=== PATIENT | male | born 1940 ===

== ENCOUNTER 2017-06-21 01:29 | Inpatient (IN) | payer MEDICARE, BC ==
[2017-06-21] VITALS (15 sets, daily range): BP systolic 81–132; BP diastolic 47–83
[~2017-06-21] VITALS: Ht 188 cm; Wt 119.1 kg
[~2017-06-21 01:29] MED LIST: ASPI-757 PO; CALC1TAB32 PO; FURO20TA19 PO; GLUC-198 PO; INSU100I10 SQ; INSU100V24 SQ; LOSA-57 PO; MULT-1335 PO; SIMV-54 PO; UBID1CAP2 PO; VITA-175 PO; VITA200C44 PO
[2017-06-21] MEDS ORDERED: FAMOTIDINE 20 MG TAB PO ONE (06:00)
[2017-06-21] MEDS ORDERED: CEFAZOLIN IVPB ONE (06:00)
[2017-06-21] MEDS ORDERED: LIDOCAINE/SOD BICARB 8.4% SYR ID ONE (06:00)
[2017-06-21] MEDS ORDERED: NORMOSOL R SOLN(*) 1000 ML BAG 1,000 ML IV PRN (06:00)
[2017-06-21] MEDS ORDERED: NS 0.9% IVPB ONE (06:00)
[2017-06-21] MEDS ORDERED: MIDAZOLAM 2 MG/2 ML VIAL IVP PRN (06:00)
[2017-06-21] MEDS ORDERED: PROPOFOL EMUL(*) 10MG/ML 20 ML 20 ML ONE ×2 (09:13→13:24)
[2017-06-21] MEDS ORDERED: ROCURONIUM BROM 10 MG/ML 10 ML ONE (09:13)
[2017-06-21] MEDS ORDERED: SUGAMMADEX SOD 200 MG/2 ML SDV ONE (09:13)
[2017-06-21] MEDS ORDERED: DEXAMETHASONE SOD 4 MG/ML VIAL ONE (09:13)
[2017-06-21] MEDS ORDERED: ONDANSETRON 4 MG/2 ML VIAL ONE (09:13)
[2017-06-21] MEDS ORDERED: fentaNYL CITR 250 MCG/5 ML AMP ONE (09:13)
[2017-06-21] MEDS ORDERED: LIDOCAINE MPF 1% 5 ML VIAL ONE (09:13)
[2017-06-21] MEDS ORDERED: KETAMINE HCL 200 MG/20 ML MDV ONE (09:15)
[2017-06-21] MEDS ORDERED: PROPOFOL(*)1000 MG/100 ML VIAL 100 ML ONE ×2 (11:23→13:27)
[2017-06-21] MEDS ORDERED: HYDROmorphone HCL 2 MG/ML SDV ONE (12:03)
[2017-06-21] MEDS ORDERED: PROPOFOL EMUL(*) 10MG/ML 20 ML 40 ML ONE ×2 (12:20→13:05)
[2017-06-21] MEDS ORDERED: LABETALOL HCL 100 MG/20ML VIAL ONE (13:05)
[2017-06-21] MEDS ORDERED: ROPIVACAINE 0.2% 20 ML VIAL ONE (14:03)
[2017-06-21] MEDS ORDERED: INSULIN HUM REG 100 UN/ML 3 ML VIAL SC ONE (14:45)
[2017-06-21] MEDS ORDERED: DIAZEPAM 5 MG TAB PO PRN (15:20)
[2017-06-21] MEDS ORDERED: FLUSH 10 ML SYR IVP PRN (15:20)
[2017-06-21] MEDS ORDERED: APAP/HYDROCODONE 325/5 TAB PO PRN (15:20)
[2017-06-21] MEDS ORDERED: ACETAMINOPHEN 500 MG TAB PO PRN (15:20)
[2017-06-21] MEDS ORDERED: MAGNESIUM HYDROXIDE* 30ML UDCP PO PRN (15:20)
[2017-06-21] MEDS ORDERED: ACETAMINOPHEN(*)1000 MG/100 ML 100 ML IVPB PRN (15:20)
[2017-06-21] MEDS ORDERED: ONDANSETRON 4 MG/2 ML VIAL IVP PRN (15:20)
[2017-06-21] MEDS ORDERED: LR(*) 1000 ML BAG 1,000 ML IV PRN (15:20)
[2017-06-21] MEDS ORDERED: diphenhydrAMINE 25 MG CAP PO PRN (15:20)
[2017-06-21] MEDS ORDERED: BENZOCAINE/MENTHOL 1 EACH LOZG PO PRN (15:20)
[2017-06-21] MEDS ORDERED: HYDROmorphone HCL 2 MG/ML SDV IVP PRN (15:20)
[2017-06-21] MEDS ORDERED: BISACODYL 10 MG SUPP PR PRN (15:20)
[2017-06-21] MEDS ORDERED: oxyCODONE HCL 5 MG CAP PO PRN (15:20)
--- NOTE | 2017-06-21 16:14 | RADIOLOGY IMAGING REPORT ---
[place] [facility] [place] Danial Velazquez : 1940 MR: [id number] V: [id number] EXAM DATE: ORDERING PHYSICIAN: CARMELITA MAYO TECHNOLOGIST: Location: [facility] [place] Patient: Danial Velazquez : 1940 Visit/Account:[id number] Date of Sevice: 06/21/2017 Exam type: LUMBAR SPINE 1 VIEW History: L2-5 LAMINECTOMY REVISION Comparison: May 12, 2017. Findings: To cross table lateral prone intraoperative lateral views of the lumbar spine were submitted. On katherine ge one a metallic probe projects over the posterior spinous process of L3. On image 2A metallic prob e projects over the spinal canal posterior to L4. Retractors are noted in the dorsal soft tissues on these intraoperative images IMPRESSION: 1. As above Report Dictated By: Treva Corrales MD at 06/21/2017 4:07 PM Report E-Signed By: Treva Corrales MD at 06/21/2017 4:10 PM WSN:[email or web address]
[2017-06-21] MEDS: ceFAZolin(*) 1 GM VIAL 3 GM in NS(*) 0.9% 100 ML BAG 100 ML IVPB SCH (18:43)
--- NOTE | 2017-06-21 18:49 | OPERATIVE REPORT 1 ---
EVENT DATE: June 21, 2017 SURGEON: Balbir Aguilar MD ANESTHESIOLOGIST: Abdoul Walden MD ANESTHESIA: General endotracheal anesthesia. GEARCASE ASSEMBLER: HILDA Henao PREOPERATIVE DIAGNOSIS L3-L4 and L4-L5 spinal stenosis. POSTOPERATIVE DIAGNOSIS L3-L4 and L4-L5 spinal stenosis. PROCEDURE PERFORMED L2 to L5 revision laminectomy. INTRAVENOUS FLUIDS 2100 mL ESTIMATED BLOOD LOSS 150 mL IMPLANTS USED None. SPECIMENS None. DRAINS Flat Randy-Gandara drain 10 mm through the back. COMPLICATIONS None. DISPOSITION Post-anesthesia care unit. INDICATIONS FOR SURGERY Mr. Velazquez is a 76-year-old male who presented to my clinic with the chief complaint of imbalance, weakness, and heaviness in bilateral lower extremities, left greater than right. He had had a spinal surgery of uncertain specificity back in the 1980s. He had tried physical therapy, injections, medications, etc. , with no real improvement in his symptoms. We performed an extensive workup secondary to concerns that his symptoms may be coming from cord compression, but spinal cord compression was found. Ultimately, his lumbar spine MRI revealed severe spinal stenosis at L3-L4 and L4-L5 with less significant stenosis up at L2-L3. His physical examination was normal, but given his subjective complaints and the severe stenosis seen on the x-ray and the MRI, he was offered and elected to undergo L2 to L5 laminectomy. Prior to surgery, I explained in detail to the patient the possible risks of surgery. These risks include bleeding, infection, damage to surrounding structures, nerve root injury, persistent and/or worsening pain, spinal fluid leak, meningitis, , blindness, sexual dysfunction, autonomic nervous system dysfunction, and other unforeseen medical and surgical complications. Given the revision nature of the procedure, the patient understands that all pertinent risks are higher secondary to the presence of scar tissue and hypertrophic bone. An understanding that spinal surgery is more predictive at improving extremity discomfort than axial spine pain was stressed. DESCRIPTION OF PROCEDURE On the date of surgery, the patient was met in the preoperative hold area, and all questions were answered. The operative site was identified and marked by myself. Patient was brought in good condition to the operating room, and after succumbing to anesthesia, was placed in the prone position on a Randy table. All bony protuberances and soft tissues were well padded in the standard fashion. Care was taken to maintain appropriate perfusion pressures during anesthesia. Preoperative antibiotics were administered according to the appropriate timing schedule. At the conclusion of the procedure, sponge and needle counts were correct times two. Final timeout was undertaken by members of the operating team to confirm correct patient, correct levels, and correct surgery. Patient was prepped and draped in the standard sterile orthopedic fashion. An incision was made over the intended spinal levels. Sharp dissection was carried down to the posterior elements, and a massive amount of hypertrophic bone was found spanning from the inferior aspect of the L2 spinous process all the way down to the L5 spinous process. A lateral radiograph was taken to confirm correct spinal levels, and soft tissues were then elevated off the posterior elements and the hypertrophic bone in a subperiosteal fashion. A combination of rongeurs and a high-speed germán was used to remove all of the hypertrophic bone and bring us down to the midline of the laminae. The canal was entered with a curved curette by undermining the superior insertion of the ligamentum flavum off the inferior surface of the L2 lamina. A midline decompression was then performed using a combination of the high-speed germán and Kerrison 3 and Kerrison 4 punches. A Chambers elevator was used to separate dural adhesions from surrounding bone and soft tissue prior to use of the Kerrison punch. Once the midline decompression was completed, a second radiograph was obtained, again to confirm correct spinal levels. Bilateral lateral recess decompressions were performed using a combination of the high-speed drill and #3 and #4 Kerrison rongeurs. At the conclusion of the decompression, all foramina were open, and the lateral recesses were well decompressed bilaterally. Meticulous hemostasis was obtained , and the wound was then closed in layers over a drain using interrupted sutures for the deep fascia, inverted interrupted sutures for the subcutaneous tissue, and then a running subcuticular skin stitch. Sponge and needle counts were correct times two. POSTOPERATIVE CARE PLAN Mr. Velazquez will remain in the hospital until his drain output decreases below 40 mL per shift. He will then be discharged home with plan for followup in two weeks' time for wound check and examination. ROSALINA
[2017-06-21] MEDS: DOCUSATE SODIUM 100 MG CAP PO SCH (20:22)
[2017-06-21] MEDS: ASPIRIN 325 MG TAB PO SCH (20:22)
[2017-06-21] MEDS: INSULIN GLARGINE 100 U/ML 3 ML PEN SQ SCH (20:30)
[2017-06-21] MEDS: INSULIN HUMAN LISPRO SLIDING SCALE SUBQ PRN (21:08)
--- NOTE | 2017-06-21 23:04 | Hospitalist Consultation ---
History of Present Illness Requesting Physician Balbir Aguilar MD Reason for Consult Medical management Chief Complaint Postop Hypotension History of Present Illness Mr. Velazquez is a 76 y.o. male with PMH of HTN, DM-II, Dyslipidemia, Prostate Cancer and Spinal Stenosis who underwent surgical procedure for his spinal stenosis by Dr. Aguilar. He tolerated the procedure well except he was mildly hypotensive and his BS was high in 300's postoperatively. History Home Meds Reported Medications Aspirin (ASPIRIN) 325 Mg Tablet, 0.5 TAB PO QHS, TAB 06/16/17 Calcium Carb & Cit/Vitamin D3 (CALCIUM + D3 ER TABLET) 1 Each Tablet.er, 1 EACH PO QDAY 06/16/17 Vitamin B Complex (B COMPLEX) 1 Each Tablet, 1 EACH PO QDAY 06/16/17 Vitamin E Acetate (VITAMIN E) 200 Unit Capsule, 3 TAB PO QDAY, CAPSULE 06/16/17 Glucosa Linton 2KCL/Chondroitin Linton (GLUCOSAMINE & CHONDROITIN CAP) 1 Each Capsule, 1200 MG PO QDAY, CAPSULE 06/16/17 Ubidecarenone/Vitamin E Mixed (Jve69-Ejf E 100 mg-10 Unit Sfg) 100 Mg-10 Unit Capsule, 2 TAB PO QDAY 06/16/17 Multivitamin With Minerals (MULTIPLE VITAMIN) 1 Each Tablet, 1 EACH PO QDAY, TAB 06/16/17 Furosemide (LASIX) 20 Mg Tablet, 1 TAB PO QDAY, TAB 06/16/17 Losartan/Hydrochlorothiazide (LOSARTAN-HCTZ 100-12.5 MG TAB) 1 Each Tablet, 1 EACH PO QDAY 06/16/17 Simvastatin (SIMVASTATIN) 40 Mg Tablet, 40 MG PO QHS, TAB 06/16/17 Insulin Glargine,Hum.rec.anlog (Basaglar Kwikpen U-100) 100 Unit/Ml (3 Ml) Insuln.pen, 45 SQ QHS 06/16/17 Insulin Lispro 100 Un/Ml Vial (HUMALOG 100 U/ML VIAL) 100 Unit/1 Ml Vial, 27-30 UNIT SQ TID, VIAL 06/16/17 Allergies: Coded Allergies: codeine (Verified Allergy, Mild, NAUSEA , 06/16/17) Patient History: Cervical cancer BROTHER OR SISTER FH: prostate cancer FATHER BROTHER OR SISTER BROTHER OR SISTER FH: stroke FATHER Sepsis MOTHER Hx Smoking: No Smoking Status: Never Smoker Caffeine Intake: Tea Caffeine/Cups Per Day: 8- CUPS OF GREEN TEA/DAY Hx Alcohol Use: Yes Alcohol Used: Beer Hx Substance Use Disorder: No Social Drug Use: Never Review of Systems Constitutional: No Fever, No Weight Loss, No Weight Gain, No Chills Neurological: No Confusion, No Weakness, No Dizziness Cardiovascular: No Chest Pain, No Palpitations Respiratory: No Shortness of Breath, No Cough, No Wheezing Gastrointestinal: No Nausea, No Vomiting, No Diarrhea, No Dysphagia, No Constipation, No Abdominal Pain Genitourinary: No Dysuria, No Hematuria Musculoskeletal: Pain, Impaired Mobility, No Sprain, No Strain Psychiatric: No Depression, No Anxiety Exam Vital Signs Vital Signs Date Time Temp Pulse Resp B/P (MAP) Pulse Ox O2 Delivery O2 Flow Rate FiO2 06/21/17 21:10 99.6 77 16 101/47 (65) 91 Nasal Cannula 1.5 General Appearance: Alert, Awake, No Acute Distress, Afebrile Neuro: No Gross deficits Eyes: PERRLA ENT: Normal Cardiovascular: Normal Rhythm & Peripheral Pulses Respiratory: No Respiratory Distress GI: Abd Soft and Non-Tender Extremities: Soft and Non Tender Integumentary: Skin Intact without Lesion / Mass Psych: Alert & Oriented X3, Appropriate Mood & Affect Medical Decision Making Pre-Admit Course Medical Record Review: Yes Assessment and Plan Problems: (1) DM (diabetes mellitus) Status: Chronic Assessment & Plan: Uncontrolled DM with GlycoHb A1C 8. His postop BS was >300 400. I will start him on Sliding scale level 2 and cover with Lispro I will continue his Lantus 45Units at HS 1800 Donovan ADA diet Accuchecks q AC and HS U/A and Lipid Profile in am (2) HTN (hypertension) Status: Chronic Assessment & Plan: His BP has been low after the surgery. I will hold his Losartan/HCTZ I will use Lasix as needed starting am. (3) Spinal stenosis of lumbar region Status: Acute Assessment & Plan: s/p Spinal surgery by Dr. Aguilar Management as per Dr. Aguilar. ASA 325mg po qd for DVTP Condition stable Time Spent on Plan of Care: > 30 min Copies to: BALBIR AGUILAR MD Venous Thromboembolism VTE Risk Physician Assess for VTE Risk: Yes Patient's VTE Risk: Low VTE Diagnostic Test 2 Days Prior to Admit: No Antithrombotics Is Pt On Any Antithrombotics?: No Exam Sepsis Risk: No Definite Risk Problem Qualifiers (1) DM (diabetes mellitus): Diabetes mellitus type: type 2 (2) HTN (hypertension): Hypertension type: essential hypertension Qualified Codes: I10 - Essential ( primary) hypertension ANDREW PEAZ MD June 21, 2017 23:04
[2017-06-21] MEDS ORDERED: TRANEXAMIC AC 1000 MG/10ML SDV 1,000 MG in NS(*) 0.9% 50 ML BAG 50 ML IVPB ONE (23:25)
[2017-06-22] VITALS (7 sets, daily range): BP systolic 91–214; BP diastolic 54–84
[2017-06-22] MEDS: ceFAZolin(*) 1 GM VIAL 3 GM in NS(*) 0.9% 100 ML BAG 100 ML IVPB SCH ×2 (03:36→10:57)
[2017-06-22] MEDS: LOSARTAN POTASSIUM 50 MG TAB PO SCH (08:35)
[2017-06-22] MEDS: CALCIUM CARBONATE/VITAMIN D3 PO SCH (08:35)
[2017-06-22] MEDS: FOLIC ACID/CYANOCOB/PYRIDOXINE PO SCH (08:35)
[2017-06-22] MEDS: DOCUSATE SODIUM 100 MG CAP PO SCH ×2 (08:36→21:21)
[2017-06-22] MEDS: SIMVASTATIN 40 MG TAB PO SCH (08:36)
[2017-06-22] MEDS: VITAMIN E 400 INTLU CAP PO SCH (08:36)
[2017-06-22] MEDS: INSULIN HUMAN LISPRO SLIDING SCALE SUBQ PRN ×2 (08:36→11:44)
[2017-06-22] MEDS ORDERED: FUROSEMIDE 20 MG TAB PO PRN (09:00)
--- NOTE | 2017-06-22 11:15 | Hospitalist Progress Note ---
Subjective Progress Notes Subjective Mr. Velazquez is a 76 y.o. male with PMH of HTN, DM-II, Dyslipidemia, Prostate Cancer and Spinal Stenosis who underwent surgical procedure for his spinal stenosis by Dr. Aguilar. He tolerated the procedure well except he was mildly hypotensive and his BS was high in 300's postoperatively. 06/22: Today patient is afebrile and hemodynamically stable without any significant complaint except c/o his high BS 300-400mg/dl. He is ambulating and receiving PT. His ambulation and balance is better after surgery. His U/A is negative for proteinuria Patient Complains of: Neurological: No: Confusion, Weakness, Dizziness Cardiovascular: No: Chest Pain, Palpitations Respiratory: No: Cough, Congestion, Shortness of Breath Gastrointestinal: No Nausea, No Vomiting, No Flatus, No Bowel Movement Genitourinary: No Dysuria, No Hematuria Musculoskeletal: No: Pain, Sprain, Strain Physical Exam Vital Signs Date Time Temp Pulse Resp B/P (MAP) Pulse Ox O2 Delivery O2 Flow Rate FiO2 06/22/17 10:59 98.9 72 16 91/69 (76) 92 Room Air 06/22/17 07:40 0.5 Intake and Output 06/23/17 06:59 Intake Total 0 ml Output Total 85 ml Balance -85 ml Intake Oral 0 ml Output Drainage Total 85 ml # Voids 1 General Appearance: Alert, Awake, No Acute Distress, Afebrile Neuro: No Gross deficits Eyes: PERRLA ENT: Normal Cardiovascular: Normal Rhythm & Peripheral Pulses Respiratory: No Respiratory Distress GI: Soft and Non-Tender Extremities: Soft and Non Tender, Other Integumentary: Skin Intact without Lesion / Mass Psych: Alert & Oriented X3, Appropriate Mood & Affect Result Diagram: 06/22/17 0541 Assessment and Plan Problems: (1) DM (diabetes mellitus) Status: Chronic Assessment & Plan: Uncontrolled DM with GlycoHb A1C 8. His postop BS was >300 400. I will start him on Sliding scale level 2 and cover with Lispro I will continue his Lantus 45Units at HS 1800 Donovan ADA diet Accuchecks q AC and HS U/A and Lipid Profile in am 10: His Lipid study is adequate and no proteinuria noted I will add 20 units of regular insulin to his meals and also keep sliding scale I will continue his Lantus 45 units at HS (2) HTN (hypertension) Status: Chronic Assessment & Plan: His BP has been low after the surgery. I will hold his Losartan/HCTZ I will use Lasix as needed starting am. 06/22: I will continue to hold his Losartan and start when his BP is adequate I will stop his HCTZ and use Lasix as needed (3) Spinal stenosis of lumbar region Status: Acute Assessment & Plan: s/p Spinal surgery by Dr. Aguilar Management as per Dr. Aguilar. ASA 325mg po qd for DVTP Time Spent on Plan of Care: < 30 min Copies to: CARMELITA AGUILAR MD Exam Sepsis Risk: No Definite Risk Problem Qualifiers (1) DM (diabetes mellitus): Diabetes mellitus type: type 2 (2) HTN (hypertension): Hypertension type: essential hypertension Qualified Codes: I10 - Essential ( primary) hypertension ANDREW PAEZ MD June 22, 2017 11:15
[2017-06-22] MEDS: INSULIN HUM LISPRO 100 UN/ML 3 ML VIAL SUBQ SCH ×2 (11:42→16:59)
--- NOTE | 2017-06-22 14:07 | Medical Nutrition Therapy ---
Nutrition Anthropometrics Height (Inches): 74.00 Height (Calculated Centimeters: 187.599249 Weight (Pounds): 262 Weight (Calculated Kilograms): 119.068 Henrik Nutrition Score: Adequate Henrik Nutrition Risk Score: 17 Dietary Referral Nutrition Risk Factors: Nutrition Risk Comment: Physical Findings Physical Appearance: Obese BMI 30-39 Skin Appearance Skin Appearance: Edema Edema Location Modifier: Both Edema Location: Lower Extremity Type of Edema: Degree of Edema: 1+ Gastrointestinal Symptoms GI Symtoms: Tube Present: Bowel Sounds: Recent Bowel Pattern: Stool Characteristics: Nutrition/Food History Compliant W/Diet (pt states follows diabetic diet at home) Nutritional Diagnosis Nutritional Risk Acuity 2: Blood Glucose > 300mg/dl Nutritional Risk Acuity 4: Good Appetite, Modified Diet Past Medical History: HTN, DM-II, Dyslipidemia, Prostate Cancer and Spinal Stenosis Nutritional Acuity: 2-Moderate Nutrition Diagnosis: Food/Med Interactions Nutrition Etiology: Physiological Causes Nutrition Problem/Etiology/Sym: Inadequate insulin r/t post surgery elevated needs AEB BG elevated up to 419. Adjusted Energy Requirement Re: 2350 ([place] -Shepherd adj for oobesity X 1.1 SF) Protein Requirement: 103 (IBW X 1.2) Fluid Requirement: 2975 (25ml/kg AW) Diet Type: Diabetic Nutrition Intervention: Cont diet as ordered, Encourage intake Nutrition Monitoring & Eval Nutrition Goals: Eat 75-100% Meal RD Patient Assessment Time: [address] Assessment Type: RD Assessment Patient Nutrition Acuity: 2-Moderate Follow Up Date: June 27, 2017 Nutritional Education Nutrition Education Topic: Diabetic Nutrition Learning Readiness: Not Interested Teaching Methods: Discussion Teaching Recipient: Patient, Significant Other Nutrition Counseling: Pt states has been following diabetic diet and "watchin" CHO. Pt not interesed in diet education at this time. JORGE LEO June 22, 2017 14:07
[2017-06-22] MEDS: INSULIN GLARGINE 100 U/ML 3 ML PEN SQ SCH (21:21)
[2017-06-22] MEDS: ASPIRIN 325 MG TAB PO SCH (21:21)
[2017-06-23 03:00] VITALS: BP 104/48
[2017-06-23 06:45] VITALS: BP 140/65
[2017-06-23] MEDS: CALCIUM CARBONATE/VITAMIN D3 PO SCH (08:29)
[2017-06-23] MEDS: VITAMIN E 400 INTLU CAP PO SCH (08:29)
[2017-06-23] MEDS: FOLIC ACID/CYANOCOB/PYRIDOXINE PO SCH (08:29)
[2017-06-23] MEDS: DOCUSATE SODIUM 100 MG CAP PO SCH (08:29)
--- NOTE | 2017-06-23 08:31 | Hospitalist Progress Note ---
Subjective Progress Notes Subjective He has no complaints this morning. He states he is ready to go home. Patient Complains of: Cardiovascular: No: Chest Pain Respiratory: No: Shortness of Breath Physical Exam Vital Signs Date Time Temp Pulse Resp B/P (MAP) Pulse Ox O2 Delivery O2 Flow Rate FiO2 06/23/17 06:45 98.0 73 16 140/65 (90) 92 Room Air 06/23/17 03:00 0.5 General Appearance: Alert, Awake, No Acute Distress, Afebrile Neuro: No Gross deficits Cardiovascular: Regular Rate and Rhythm Respiratory: No Respiratory Distress, Clear to Auscultation GI: Soft and Non-Tender Psych: Alert & Oriented X3, Appropriate Mood & Affect Result Diagram: 06/22/17 0541 Assessment and Plan Problems: (1) Spinal stenosis of lumbar region Status: Acute Assessment & Plan: s/p Spinal surgery by Dr. Aguilar (2) DM (diabetes mellitus) Status: Chronic Assessment & Plan: He is on chronic treatment with Lantus and Regular Insulin sliding scale. (3) HTN (hypertension) Status: Chronic Assessment & Plan: He is on chronic treatment with Losartan/HCTZ and Lasix. Exam Sepsis Risk: No Definite Risk Problem Qualifiers (1) DM (diabetes mellitus): Diabetes mellitus type: type 2 (2) HTN (hypertension): Hypertension type: essential hypertension Qualified Codes: I10 - Essential ( primary) hypertension ELEANOR CAPPS June 23, 2017 08:30
[2017-06-23] MEDS ORDERED: LOR5/325 PO (08:38)
[2017-06-23] MEDS ORDERED: DOCU240C84 PO (08:39)
[2017-06-23] MEDS ORDERED: DIA5 PO (08:39)
[2017-06-23] MEDS: LOSARTAN POTASSIUM 50 MG TAB PO SCH (08:40)
[2017-06-23] MEDS: SIMVASTATIN 40 MG TAB PO SCH (08:41)
[2017-06-23] MEDS ORDERED: INSULIN HUM LISPRO 100 UN/ML 3 ML VIAL SUBQ SCH (09:00)
== END 2017-06-23 10:10 | disposition home or self-care (01) | DRG 517 ==
LOC: OR 01:29 → MED 16:50
PROVIDERS: ADMIT Orthopaedic Surgery; ATTEND Orthopaedic Surgery
PROC: 01NB0ZZ Release Lumbar Nerve, Open Approach (ICD-10-PCS; principal; 2017-06-21 11:03)
DX: M48.061 Spinal stenosis, lumbar region without neurogenic claudication (principal); M54.16 Radiculopathy, lumbar region; I95.81 Postprocedural hypotension; I10 Essential (primary) hypertension; E11.65 Type 2 diabetes mellitus with hyperglycemia; E78.5 Hyperlipidemia, unspecified; Z79.4 Long term (current) use of insulin; Z88.8 Allergy status to other drugs, medicaments and biological substances; Z85.46 Personal history of malignant neoplasm of prostate
CPT/HCPCS: 36415; 36416; 72020; 81001; 82465; 82948; 83718; 84478; 85027; 86850; 86900; 86901; 97161; J0690; J1100; J1170; J1815; J2001; J2405; J2704; J2795; J3010; J3490; J7050